=== PATIENT | female | born 1940 | race Hispanic/Latino ===

== ENCOUNTER 2018-10-21 20:47 | Inpatient (IN) | payer MEDICARE ==
[~2018-10-21] VITALS: Ht 167.6 cm; Wt 68.8 kg
[2018-10-21] MEDS ORDERED: SODIUM CHLORIDE 0.9% 500ML 500 ML IV ONE (22:35)
[2018-10-21 22:45] LABS: APPEARANCE,URINE SL CLOUDY (CLEAR); BILIRUBIN,URINE NEGATIVE (NEGATIVE); COLOR,URINE YELLOW (YELLOW); GLUCOSE, URINE (UA) NEGATIVE (NEGATIVE); KETONES,URINE NEGATIVE (NEGATIVE); LEUKOCYTE ESTERASE ,URINE LARGE (NEGATIVE); NITRATE,URINE NEGATIVE (NEGATIVE); OCCULT BLOOD,URINE MODERATE (NEGATIVE); PH,URINE 5.5 (5.0-8.0); PROTEIN,URINE TRACE (NEGATIVE); UROBILINOGEN,URINE 0.2 mg/dL (0.2-1.0)
[2018-10-21 23:05] LABS: BASOPHILS % (AUTO) 0.6 % (0.0-5.0); EOSINOPHILS % (AUTO) 1.4 % (0.0-8.0); HEMATOCRIT 32.4 % (36-48); LYMPHOCYTES % (AUTO) 24.9 % (21.0-51.0); MEAN CORPUSCULAR HEMOGLOBIN 25.3 pg (27.0-33.0); MEAN CORPUSCULAR HGB CONC 31.7 g/dL (32.0-36.0); MONOCYTES % (AUTO) 9.6 % (3.0-13.0); NEUTROPHILS % (AUTO) 63.5 % (40.0-77.0); PLATELET COUNT (AUTO) 126 K/uL (130-400); RED BLOOD CELL COUNT(AUTO) 4.05 MIL/uL (4.00-5.50); RED CELL DISTRIBUTION WIDTH 15.9 % (11.0-15.5); WHITE BLOOD COUNT (AUTO) 4.8 K/uL (4.8-10.8)
[2018-10-21 23:06] LABS: POTASSIUM 4.5 mmol/L (3.5-5.1)
[2018-10-21 23:11] LABS: ALBUMIN 3.6 g/dL (3.5-5.0); BILIRUBIN,TOTAL 0.3 mg/dL (0.2-1.0); TOTAL PROTEIN, SERUM 7.2 g/dL (6.0-8.3)
[2018-10-21 23:12] LABS: BACTERIA,URINE Moderate /HPF (None Seen); WBC,URINE 26-50 /HPF (0-1)
[2018-10-21 23:13] LABS: INR 0.99 (0.85-1.15); PARTIAL THROMBOPLASTIN TIME 26.5 SEC (26.3-35.5); PROTHROMBIN TIME 10.4 SEC (9.6-11.6)
[2018-10-21] MEDS ORDERED: CEFTRIAXONE SODIUM 1 GM ONE (23:14)
[2018-10-22] MEDS ORDERED: SODIUM CHLORIDE 0.9% 500ML 500 ML IV ONE ×2 (00:44→01:45)
[2018-10-22] MEDS ORDERED: MORPHINE SULFATE 2 MG/ML 1ML SYG IV PRN (02:30)
[2018-10-22] MEDS ORDERED: NITROGLYCERIN 1GM/1 INCH PACKET TD SCH (02:30)
[2018-10-22] MEDS ORDERED: NITROGLYCERIN 1GM/1 INCH PACKET TD ONE ×2 (02:51→21:41)
[2018-10-22] MEDS ORDERED: METOPROLOL TARTRATE 25 MG TAB ONE ×2 (06:15→21:41)
[2018-10-22] MEDS: ASPIRIN 325 MG TABLET PO SCH (09:00)
[2018-10-22] MEDS ORDERED: ENOXAPARIN SODIUM 30 MG/0.3 ML SQ SCH (09:00)
[2018-10-22] MEDS: METOPROLOL TARTRATE 25 MG TAB PO SCH ×2 (09:00→21:00)
[2018-10-22] MEDS: FAMOTIDINE/PF 20 MG/2 ML VIAL IV SCH ×2 (09:00→21:00)
[2018-10-22] MEDS: DILTIAZEM HCL 5 MG/ML 5 ML VIAL IVP SCH (10:17)
[2018-10-22] MEDS ORDERED: LISI-617 PO (10:25)
[2018-10-22] MEDS ORDERED: PIND10TA2 PO (10:25)
[2018-10-22] MEDS ORDERED: CARB100T52 PO (10:25)
[2018-10-22] MEDS ORDERED: ALEN70TA10 PO (10:25)
[2018-10-22] MEDS ORDERED: SIMV20TA6 PO (10:25)
[2018-10-22] MEDS ORDERED: POTA20TA82 PO (10:25)
--- NOTE | 2018-10-22 12:48 | NUR ---
GINNY Boone met with pt and daughter Carito Weiner Manny [phone]. Daughter reports pt lives with her, has provider daily for 5hrs thru [facility]. Pt has no HH, has non working walker, needs new one. Referred daughter to PCP for rx. Daughter transports as needed. Daughter denies dc needs, plan is home at nd Addendum: 10/22/18 at 1250 by SANTANA BRANDON SS Amended: Links added.
[2018-10-22] MEDS: NITROGLYCERIN 1GM/1 INCH PACKET TD SCH ×2 (13:47→21:47)
[2018-10-22] MEDS ORDERED: DILTIAZEM HCL 5 MG/ML 10 ML VIAL IV ONE (20:23)
[2018-10-22] MEDS ORDERED: SODIUM CHLORIDE 0.9% 100 ML IV ONE (20:24)
[2018-10-22] MEDS: ENOXAPARIN SODIUM 80 MG/0.8 ML SQ SCH (21:00)
[2018-10-22] MEDS ORDERED: FAMOTIDINE/PF 20 MG/2 ML VIAL IV ONE (21:41)
--- NOTE | 2018-10-22 22:15 | NUR ---
REPORT RECEIVED FROM ZOHREH MARIE. PATIENT AWAKE , ALERT AND ORIENTED, PATIENT ASSESSMENT COMPLETED.IV CARDIZEM INFUSING AT 15 ML /HR IV TO R ANTECUBITAL WRAPPED, LEAKING, INFILTRATED, DC'D DRSG APPLIED. DAUGHTER AT BEDSIDE. INSTRUCTED TO CALL FOR ASSISTANCE, CALL PENA IN REACH.
[2018-10-22 22:18] VITALS: BP 129/62
[2018-10-22 22:30] VITALS: BP 129/62
[2018-10-23] VITALS (11 sets, daily range): BP systolic 102–161; BP diastolic 62–89
--- NOTE | 2018-10-23 01:45 | NUR ---
PATIENT UP TO BATHROOM , PULLED IV OUT, DAUGHTER ASLEEP AT BEDSIDE. IV 22 G RESTARTED TO . PATIENT INSTRUCTED TO CALL FOR NURSE, CALL PENA IN REACH, DAUGHTER AWAKE AND STATES WILL OBSERVE PATIENT, BED ALARM ON.
[2018-10-23] MEDS: NITROGLYCERIN 1GM/1 INCH PACKET TD SCH (05:47)
[2018-10-23] MEDS: ACETAMINOPHEN 325 MG TAB PO PRN (05:58)
[2018-10-23] MEDS: DILTIAZEM HCL 125 MG/25 ML 125 MG in SODIUM CHLORIDE 0.9% 100 ML IV PRN ×2 (06:54→22:33)
[2018-10-23] MEDS: FAMOTIDINE/PF 20 MG/2 ML VIAL IV SCH ×2 (09:49→22:36)
[2018-10-23] MEDS: ASPIRIN 325 MG TABLET PO SCH (09:49)
[2018-10-23] MEDS: ENOXAPARIN SODIUM 80 MG/0.8 ML SQ SCH ×2 (09:49→20:28)
[2018-10-23] MEDS: METOPROLOL TARTRATE 50 MG TAB PO SCH ×2 (09:50→20:28)
[2018-10-23] MEDS: DILTIAZEM HCL 5 MG/ML 5 ML VIAL IVP SCH (10:17)
[2018-10-23] MEDS: DILTIAZEM HCL 60 MG TABLET PO SCH (17:25)
--- NOTE | 2018-10-23 19:20 | NUR ---
IV PULLED OUT BY PATIENT X2 FAMILY MEMBERS AT BEDSIDE.
[2018-10-23] MEDS: ONDANSETRON HCL 4 MG/2 ML VIAL IV PRN (23:09)
--- NOTE | 2018-10-23 23:09 | NUR ---
ZOFRAN GIVEN FOR NAUSEA SEE E MAR
--- NOTE | 2018-10-24 | NUR ---
NAUSEA RESOLVED. GRANDSON AT BEDSIDE, BED ALARM ON
[2018-10-24] MEDS: DILTIAZEM HCL 60 MG TABLET PO SCH ×2 (00:15→05:56)
[2018-10-24] MEDS: ACETAMINOPHEN 325 MG TAB PO PRN ×2 (00:46→23:53)
--- NOTE | 2018-10-24 02:00 | NUR ---
HR 77 AFIB CARDIZEM DRIP TURNED OFF.
[2018-10-24 03:14] VITALS: BP 116/50
[2018-10-24 03:31] LABS: HEMATOCRIT 28.7 % (36-48); MEAN CORPUSCULAR HEMOGLOBIN 25.6 pg (27.0-33.0); MEAN CORPUSCULAR HGB CONC 32.5 g/dL (32.0-36.0); MEAN CORPUSCULAR VOLUME 78.7 fL (79-99); PLATELET COUNT (AUTO) 101 K/uL (130-400); RED BLOOD CELL COUNT(AUTO) 3.65 MIL/uL (4.00-5.50); RED CELL DISTRIBUTION WIDTH 15.6 % (11.0-15.5); WHITE BLOOD COUNT (AUTO) 4.7 K/uL (4.8-10.8)
[2018-10-24 03:39] LABS: POTASSIUM 4.1 mmol/L (3.5-5.1)
--- NOTE | 2018-10-24 06:00 | NUR ---
PATIENT UP TO CHAIR , HR ACCELERATED, CARDIZEM PO SCHEDULED DOSE GIVEN SEE EMAR. WILL OBSERVE
--- NOTE | 2018-10-24 06:54 | NUR ---
PATIENT WITH SMALL AMT BLOOD STREAKED SPUTUM, CARDIZEM DRIP INFUSING AT 15 ML /HR, HR 135 A FIB
[2018-10-24 07:00] VITALS: BP 112/67
--- NOTE | 2018-10-24 07:35 | NUR ---
ASSESSMENT ENCOUNTERED PT A&OX3 BUT FORGETFUL, CALM COOPERATIVE AND DOES NOT APPEAR TO BE IN ANY DISTRESS NOR ANY NEURO DEFICITS PRESENT. PT DENIES PAIN, SOB, NAUSEA. PT IS AMBULATORY, GAIT SLOW BUT STEADY WITH ASSIST. TELE MONITOR DISPLAYS AFIB/FLUTTER WITH CARDIZEM IV DRIP AT 15MG/HR. PT IS ABLE TO TOLERATE FOODS AND FLUIDS WITH NO THROAT CLEARING OR COUGH. CALL LIGHT WITHIN REACH, FAMILY AT BEDSIDE.
[2018-10-24] MEDS: FAMOTIDINE/PF 20 MG/2 ML VIAL IV SCH (08:57)
[2018-10-24] MEDS: APIXABAN 5 MG TABLET PO SCH ×2 (08:57→22:41)
[2018-10-24] MEDS: METOPROLOL TARTRATE 50 MG TAB PO SCH ×2 (08:57→22:41)
[2018-10-24] MEDS: ASPIRIN 81MG TAB.CHEW PO SCH (08:57)
[2018-10-24 11:00] VITALS: BP 110/59
--- NOTE | 2018-10-24 11:00 | NUR ---
CARDIZEM DRIP OFF HEART RATE 80S. PT AMBULATING TO BATHROOM, HEART RATE 90-100 BEATS PER MINUTE IN ATRIAL FLUTTER. PT TOLERATING WELL, CALL LIGHT WITHIN REACH, FAMILY AT BEDSIDE.
[2018-10-24 16:00] VITALS: BP 118/88
[2018-10-24 20:06] VITALS: BP 118/78
--- NOTE | 2018-10-24 21:00 | NUR ---
ASSESSMENT PT RESTING COMFORTABLE IN BED. CURRENTLY DENIES ANY PAIN. FAMILY AT BEDSIDE. CARDIZEM GTT INFUSING. CALLBELL REVIEWED AND WITHIN REACH. WHITE BOARD UP-DATED. QUESTIONS ASKED AND ANSWERED, SEE NURSING FLOW SHEET.
[2018-10-24] MEDS: DILTIAZEM HCL 125 MG/25 ML 125 MG in SODIUM CHLORIDE 0.9% 100 ML IV PRN (22:39)
[2018-10-24 23:50] VITALS: BP 143/71
[2018-10-25 03:50] VITALS: BP 97/57
--- NOTE | 2018-10-25 07:00 | NUR ---
REPORT REPORT GIVEN TO TIAN GRAMAJO
[2018-10-25 08:00] VITALS: BP 117/67
--- NOTE | 2018-10-25 09:00 | NUR ---
ASSESSMENT ENCOUNTERED PT A&OX3 BUT FORGETFUL, CALM COOPERATIVE AND DOES NOT APPEAR TO BE IN ANY DISTRESS NOR ANY NEURO DEFICITS PRESENT. PT DENIES PAIN, SOB, NAUSEA BUT DOES C/O COUGH WITHOUT PHLEGM, PT IS AMBULATORY, GAIT SLOW BUT STEADY WITH ASSIST. TELE MONITOR DISPLAYS AFIB/FLUTTER WITH CARDIZEM IV DRIP AT 10MG/HR. CALL LIGHT WITHIN REACH, FAMILY AT BEDSIDE.
[2018-10-25] MEDS: APIXABAN 5 MG TABLET PO SCH ×2 (09:03→21:04)
[2018-10-25] MEDS: FAMOTIDINE 20MG TAB 20 MG TAB PO SCH (09:03)
[2018-10-25] MEDS: METOPROLOL TARTRATE 50 MG TAB PO SCH ×3 (09:03→21:05)
[2018-10-25] MEDS: ASPIRIN 81MG TAB.CHEW PO SCH (09:03)
[2018-10-25] MEDS: ONDANSETRON HCL 4 MG/2 ML VIAL IV PRN (09:10)
[2018-10-25 10:05] VITALS: BP 116/71
--- NOTE | 2018-10-25 11:00 | NUR ---
AMBULATION PT AMBULATING TO BATHROOM AND BACK TO BED. GAIT SLOW BUT STEADY WITH ASSIST. PT DENIES DIZZINESS OR LIGHTHEADEDNESS. TELEMONITOR AFIB WITH A RATE OF UPPER 90-100 BEATS PER MINUTE. PT RESTING COMFORTABLY, CALL LIGHT WITHIN REACH, FAMILY AT BEDSIDE.
[2018-10-25] MEDS ORDERED: AMIODARONE HCL 150 MG in DEXTROSE 5%-WATER 100 ML IV SCH (15:45)
[2018-10-25] MEDS ORDERED: AMIODARONE HCL 900 MG in DEXTROSE 5%-WATER 500 ML IV SCH (15:45)
[2018-10-25 16:00] VITALS: BP 124/79
[2018-10-25 19:40] VITALS: BP 127/94
--- NOTE | 2018-10-25 20:15 | NUR ---
ASSESSMENT PT RESTING COMFORTABLE IN BED. CURRENTLY DENIES ANY PAIN. FAMILY AT BEDSIDE. AMIODARONE GTT INFUSING WELL. CALLBELL REVIEWED AND WITHIN REACH. WHITE BOARD UP-DATED. QUESTIONS ASKED AND ANSWERED. NURSING ASSESSMENT COMPLETED, SEE NURSING FLOW SHEET.
[2018-10-25] MEDS: ACETAMINOPHEN 325 MG TAB PO PRN (21:04)
[2018-10-25 23:52] VITALS: BP 112/85
[2018-10-26] VITALS (8 sets, daily range): BP systolic 108–137; BP diastolic 63–91
[2018-10-26] MEDS: ACETAMINOPHEN 325 MG TAB PO PRN (02:20)
[2018-10-26] MEDS: ONDANSETRON HCL 4 MG/2 ML VIAL IV PRN ×2 (02:20→22:57)
[2018-10-26 03:41] LABS: HEMATOCRIT 30.6 % (36-48); MEAN CORPUSCULAR HEMOGLOBIN 25.4 pg (27.0-33.0); MEAN CORPUSCULAR HGB CONC 31.9 g/dL (32.0-36.0); MEAN CORPUSCULAR VOLUME 79.8 fL (79-99); PLATELET COUNT (AUTO) 95 K/uL (130-400); RED BLOOD CELL COUNT(AUTO) 3.83 MIL/uL (4.00-5.50); RED CELL DISTRIBUTION WIDTH 16.1 % (11.0-15.5); WHITE BLOOD COUNT (AUTO) 6.1 K/uL (4.8-10.8)
[2018-10-26 03:54] LABS: CREATININE 0.9 mg/dL (0.5-1.5); POTASSIUM 4.5 mmol/L (3.5-5.1)
[2018-10-26 04:23] LABS: EOSINOPHILS % (MANUAL) 4 % (1-6); LYMPHOCYTES % (MANUAL) 13 % (22-44); MAN.DIFF COMMENT-IMPRESSION MANUAL DIFFERENTIAL; MONOCYTES % (MANUAL) 5 % (2-9); SEGMENTED NEUTROPHILS % 78 % (40-70)
[2018-10-26 04:24] LABS: PLATELET MORPHOLOGY COMMENT DECREASED
[2018-10-26] MEDS: APIXABAN 5 MG TABLET PO SCH ×2 (07:23→19:54)
[2018-10-26] MEDS: METOPROLOL TARTRATE 50 MG TAB PO SCH ×2 (07:23→19:54)
[2018-10-26] MEDS: ASPIRIN 81MG TAB.CHEW PO SCH (07:23)
[2018-10-26] MEDS: METOPROLOL TARTRATE 1 MG/ML 5ML VIAL IV PRN ×3 (07:23→22:57)
[2018-10-26] MEDS: FAMOTIDINE 20MG TAB 20 MG TAB PO SCH (07:23)
--- NOTE | 2018-10-26 07:45 | NUR ---
ASSESSMENT ENCOUNTERED PT UP IN CHAIR, A&OX3 BUT FORGETFUL, CALM COOPERATIVE AND DOES NOT APPEAR TO BE IN ANY DISTRESS NOR ANY NEURO DEFICITS PRESENT. PT DENIES PAIN, SOB, NAUSEA BUT DOES C/O NONPRODUCTIVE COUGH. PT IS AMBULATORY, GAIT SLOW BUT STEADY WITH STAND BY ASSIST. TELE MONITOR DISPLAYS AFLUTTER WITH A RATE OF 110-120 BEATS PER MINUTE, AMIODARONE DRIP IN PLACE AT 16.6ML/HR. PT IS ABLE TO TOLERATE FOODS, FLUIDS AND MEDICATION WITH NO THROAT CLEARING OR COUGH. CALL LIGHT WITHIN REACH, FAMILY AT BEDSIDE.
[2018-10-26] MEDS ORDERED: METOPROLOL TARTRATE 50 MG TAB ONE (14:01)
[2018-10-26] MEDS ORDERED: METOPROLOL TARTRATE 1 MG/ML 5ML VIAL IV ONE (14:21)
--- NOTE | 2018-10-26 17:52 | NUR ---
CM NOTE cm spoke to pt and daughter regarding Life vest. Aware of MD recommendations. Cm obtained consent for referral. Cm to fax and f/u.
--- NOTE | 2018-10-26 21:03 | NUR ---
2039 Patient transferred to room 226 via wheelchair accompanied by family. Denies pain, sob. Status unchanged
[2018-10-27 03:00] VITALS: BP 133/93
[2018-10-27] MEDS: METOPROLOL TARTRATE 1 MG/ML 5ML VIAL IV PRN (04:02)
[2018-10-27] MEDS: DILTIAZEM HCL 125 MG/25 ML 125 MG in SODIUM CHLORIDE 0.9% 100 ML IV PRN (05:10)
[2018-10-27 07:00] VITALS: BP 121/74
[2018-10-27] MEDS: ASPIRIN 81MG TAB.CHEW PO SCH (10:09)
[2018-10-27] MEDS: METOPROLOL TARTRATE 50 MG TAB PO SCH ×2 (10:09→20:51)
[2018-10-27] MEDS: FAMOTIDINE 20MG TAB 20 MG TAB PO SCH (10:09)
[2018-10-27] MEDS: APIXABAN 5 MG TABLET PO SCH ×2 (10:09→20:51)
[2018-10-27 11:00] VITALS: BP 93/70
--- NOTE | 2018-10-27 14:02 | NUR ---
LIFE VEST LIFE VEST CALLED SAID DENIED NEED DIFFERENT DIAGNOSIS. CM WILL CONTINUE TO FOLLOW. Addendum: 10/27/18 at 1406 by ABHINAV LEO RN CM Amended: Links added.
[2018-10-27 16:00] VITALS: BP 87/54
[2018-10-27] MEDS: ACETAMINOPHEN 325 MG TAB PO PRN (16:45)
[2018-10-27 19:56] VITALS: BP 118/60
[2018-10-27 23:51] VITALS: BP 120/50
[2018-10-28] VITALS (13 sets, daily range): BP systolic 89–143; BP diastolic 38–78
[2018-10-28 04:20] LABS: HEMATOCRIT 26.5 % (36-48); MEAN CORPUSCULAR HEMOGLOBIN 26.2 pg (27.0-33.0); MEAN CORPUSCULAR HGB CONC 33.3 g/dL (32.0-36.0); MEAN CORPUSCULAR VOLUME 78.7 fL (79-99); NUCLEATED RED BLOOD CELLS 0.1 % (0.0-0.19); PLATELET COUNT (AUTO) 117 K/uL (130-400); RED BLOOD CELL COUNT(AUTO) 3.36 MIL/uL (4.00-5.50); RED CELL DISTRIBUTION WIDTH 16.2 % (11.0-15.5); WHITE BLOOD COUNT (AUTO) 7.1 K/uL (4.8-10.8)
[2018-10-28 04:30] LABS: CREATININE 0.8 mg/dL (0.5-1.5); MAGNESIUM 2.2 mg/dL (1.80-2.40); PHOSPHORUS 3.4 mg/dL (2.5-4.9); POTASSIUM 4.4 mmol/L (3.5-5.1)
[2018-10-28] MEDS: APIXABAN 5 MG TABLET PO SCH ×2 (08:08→20:53)
[2018-10-28] MEDS: FAMOTIDINE 20MG TAB 20 MG TAB PO SCH (08:08)
[2018-10-28] MEDS: ASPIRIN 81MG TAB.CHEW PO SCH (08:08)
[2018-10-28] MEDS: METOPROLOL TARTRATE 50 MG TAB PO SCH ×2 (08:09→20:54)
[2018-10-28] MEDS: DILTIAZEM HCL 125 MG/25 ML 125 MG in SODIUM CHLORIDE 0.9% 100 ML IV PRN (10:44)
[2018-10-28] MEDS ORDERED: LIDOCAINE HCL 2% VISCOUS 15 ML UDCUP PO SCH (12:30)
[2018-10-28] MEDS ORDERED: FENTANYL CITRATE PF 50 MCG/1 ML 2ML VIAL IVP SCH ×2 (12:30→13:30)
[2018-10-28] MEDS ORDERED: MIDAZOLAM HCL 1 MG/ML 2ML VIAL ONE (12:38)
[2018-10-28] MEDS ORDERED: PROPOFOL 10 MG/ML 20ML VIAL IV ONE (12:41)
[2018-10-28] MEDS ORDERED: FENTANYL CITRATE PF 50 MCG/1 ML 5ML AMP IV ONE (12:41)
[2018-10-28] MEDS ORDERED: MIDAZOLAM HCL 1 MG/ML 2ML VIAL IV SCH (12:45)
[2018-10-28] MEDS ORDERED: SODIUM CHLORIDE 0.9% 1000ML 1,000 ML IV ONE (12:45)
--- NOTE | 2018-10-28 13:26 | NUR ---
TAYLOR WITH CARDIOVERSION DONE BY DR. PILLAI. REQUESTED 2MG VERSED IV, 30MG PROPOFOL IV, AND 25MCG FENTANYL IV. PATIENT STILL ASLEEP. MONITORING VITALS EVERY 15MIN. LATEST VITALS HR 96 NSR, SBP 108/41, O2SAT 100% NC 4L, RESP 18.
[2018-10-28] MEDS: ONDANSETRON HCL 4 MG/2 ML VIAL IV PRN (18:15)
--- NOTE | 2018-10-28 20:00 | NUR ---
Life Vest given to patient. Education provided to both family and patient. Patient currently wearing life vest.
[2018-10-28] MEDS ORDERED: SIMVASTATIN 20 MG TABLET PO SCH (21:00)
--- NOTE | 2018-10-28 21:25 | NUR ---
Patient c/o anxiety. Heart Rate ST 115-120s. Tachypneic. Respirations at 22. Paged Hospitalist for orders.
--- NOTE | 2018-10-28 21:30 | NUR ---
Verbal orders given of antianxiety medication X1 dose per Jason Zavala
[2018-10-28] MEDS: ALPRAZOLAM 0.25 MG TABLET PO ONE ×2 (21:34→21:39)
[2018-10-29 00:03] VITALS: BP 136/90
[2018-10-29 04:47] VITALS: BP 126/76
[2018-10-29 07:56] VITALS: BP 134/80
--- NOTE | 2018-10-29 08:10 | NUR ---
RESTING IN BED WITH HOB AT 30 DEGREES, RESP.'S EVEN AND UNLABORED. EYES CLOSED, OPENS EYES TO VERBAL COMMAND. REPOSITIONED IN BED FOR COMFORT. ABD SOFT WITH (+) BOWEL SOUNDS, DENIES ANY C/O N/V. VOIDS, W/O C/O. COMPLETE ASSESSMENT DONE. CALL LIGHT WITHIN REACH, VERBALIZED ABILITY TO USE. BED LOW, SIDE RAILS UP X2. ROOM DOOR OPEN, VISIBLE FROM NURSE'S STATION.
[2018-10-29] MEDS: FAMOTIDINE 20MG TAB 20 MG TAB PO SCH (08:14)
[2018-10-29] MEDS: APIXABAN 5 MG TABLET PO SCH (08:14)
[2018-10-29] MEDS: ASPIRIN 81MG TAB.CHEW PO SCH (08:14)
[2018-10-29] MEDS: METOPROLOL TARTRATE 50 MG TAB PO SCH (08:14)
[2018-10-29] MEDS ORDERED: LISINOPRIL 5 MG TABLET PO SCH (09:00)
[2018-10-29] MEDS ORDERED: CARBAMAZEPINE 200 MG TAB.ER.12H PO SCH (09:00)
[2018-10-29] MEDS ORDERED: POTASSIUM CHLORIDE 20 MEQ ERTAB PO SCH (09:00)
[2018-10-29 11:32] VITALS: BP 116/58
--- NOTE | 2018-10-29 12:10 | NUR ---
SITTING UP ON SIDE OF BED EATING LUNCH W/O C/O. CALL LIGHT WITHIN REACH. FAMILY MEMBERS AT BEDSIDE.
[2018-10-29] MEDS ORDERED: APIX5TAB PO (12:19)
[2018-10-29] MEDS ORDERED: METO50 PO (12:19)
[2018-10-29] MEDS ORDERED: ASPI-1005 PO (12:19)
[2018-10-29] MEDS: ONDANSETRON HCL 4 MG/2 ML VIAL IV PRN (14:30)
[2018-10-29] MEDS: ACETAMINOPHEN 325 MG TAB PO PRN (16:16)
[2018-10-29 16:42] VITALS: BP 129/85
--- NOTE | 2018-10-29 16:58 | NUR ---
Nutrition intervention: Nutrition notification for LOS x7. Pt admitted for closed head injury. Pt currently on heart healthy diet with ensure TID, fair po intake. At time of RD visit pt with increased nausea and emesis episode. Pt's RN, Junito, aware of pt's medical condition and treating pt medically. RD spoke to pt about n/v, pt reports no food being thrown up, she does not believe n/v is d/t to food. Nurse Junito present and aware. RD to continue monitoring pt's nutritional status for continued intervention. Recommendations: Continue current diet therapy. Consult RD as nutrition concerns arise. Addendum: 10/29/18 at [address] Amended: Links added.
--- NOTE | 2018-10-29 17:10 | NUR ---
HL REMOVED, CATHETER INTACT. DISCHARGE INSTRUCTIONS GIVEN TO PT. AND PT.'S FAMILY MEMBER AT BEDSIDE, VERBALIZED MUTUAL UNDERSTANDING.
--- NOTE | 2018-10-29 17:20 | NUR ---
DISCHARGED HOME VIA W/C WITH BELONGINGS ACCOMPANIED BY Charlene BLAKE PCP AND PT.'S FAMILY MEMBER.
== END 2018-10-29 17:24 | disposition home or self-care (01) | DRG 309 ==
LOC: EDH 20:47 → EDHIP 10-22 01:35 → OBSVTOIN 10-22 01:35 → 2BH 10-22 21:39 → 2DH 10-26 21:47
PROVIDERS: ADMIT Internal Medicine; ATTEND Internal Medicine
PROC: 5A2204Z Restoration of Cardiac Rhythm, Single (ICD-10-PCS; principal; 2018-10-28)
DX: I48.4 Atypical atrial flutter (principal); G45.9 Transient cerebral ischemic attack, unspecified; I48.1 Persistent atrial fibrillation; I10 Essential (primary) hypertension; I95.1 Orthostatic hypotension; I42.9 Cardiomyopathy, unspecified; F41.9 Anxiety disorder, unspecified; D69.6 Thrombocytopenia, unspecified; E78.5 Hyperlipidemia, unspecified; G31.9 Degenerative disease of nervous system, unspecified; I25.10 Atherosclerotic heart disease of native coronary artery without angina pectoris; G93.89 Other specified disorders of brain; W22.01XA Walked into wall, initial encounter; Y93.89 Activity, other specified; Y92.89 Other specified places as the place of occurrence of the external cause; Y99.8 Other external cause status; Z79.01 Long term (current) use of anticoagulants; Z95.1 Presence of aortocoronary bypass graft; Z86.73 Personal history of transient ischemic attack (TIA), and cerebral infarction without residual deficits
CPT/HCPCS: 36415; 70450; 71045; 74018; 80048; 80053; 81001; 83735; 84100; 84443; 84484; 85025; 85027; 85610; 85730; 92960; 93005; 93306; 93313; 93880; G0378; J0282; J0696; J1650; J2250; J2405; J2704; J3010; J3490; J7030; J7040; J7060